=== PATIENT | male | born 1960 | race Caucasian/White ===

== ENCOUNTER 2017-07-18 14:45 | Emergency (ER) | payer OTHER ==
[~2017-07-18] VITALS: Ht 172.7 cm; Wt 97.5 kg
[2017-07-18] MEDS ORDERED: Motrin,Rufen800 MG PO (16:35)
== END 2017-07-18 17:05 | disposition home or self-care (01) ==
LOC: ED 14:45
DX: S06.0X0A Concussion without loss of consciousness, initial encounter (principal); S01.03XA Puncture wound without foreign body of scalp, initial encounter; S16.1XXA Strain of muscle, fascia and tendon at neck level, initial encounter; W22.8XXA Striking against or struck by other objects, initial encounter; Y93.89 Activity, other specified; Y92.89 Other specified places as the place of occurrence of the external cause; Y99.9 Unspecified external cause status